=== PATIENT | female | born 1995 | race African-American/Black ===

== ENCOUNTER 2017-11-19 22:02 | Emergency (ER) | payer BC, OTHER ==
[2017-11-19 22:20] VITALS: BP 120/68; PULSE 88; TEMP 98.4; BMI 24.7
--- NOTE | 2017-11-20 00:26 | PDOC ---
History of Present Illness - General History Source: Patient Exam Limitations: No Limitations - General Chief Complaint: Pain Stated Complaint: CHEST PAIN Time Seen by Provider: 11/19/17 23:39 - History of Present Illness Initial Comments: 11/20/17 05:35 Best Contact:[phone] PCP:Dr. Luna Pmhx:Crohn's (dx in 2014) Pshx: Left ovarian cystectomy Allergies:NKDA LMP: presently 22-year-old female presents to the ER with her mother and sister complaining of 2/10 nonradiating intermittent right-sided chest discomfort on exhalation. Patient states she has these similar symptoms approximately 3 times a month but denies fever, chills, nausea/vomiting, facial pains, or throat, neck pains, back pains, shortness of breath, abdominal pains, flank pains, urinary symptoms. Patient states the symptoms last for approximately 20 minutes and subsides without taking anything. Patient denies extremity numbness or tingling sensation. Patient denies using control pills, prolonged sitting or leg pain. (Orin,Jefferson) Past History - Past Medical History COPD: No GI Disorders: Yes (Crohn's) - Suicide/Smoking/Psychosocial Hx Smoking History: Never smoked Have you smoked in the past 12 months: No Information on smoking cessation initiated: No Hx Alcohol Use: No Drug/Substance Use Hx: No Substance Use Type: None - Past Medical History Allergies/Adverse Reactions: Allergies Allergy/AdvReac Type Severity Reaction Status Date / Time No Known Allergies Allergy Verified 11/19/17 22:17 Home Medications: Ambulatory Orders NK [No Known Home Medication] 04/01/14 Review of Systems - Review of Systems Able to Perform ROS?: Yes Is the patient limited Tajik proficient: No - Review of Systems Comments:: 11/20/17 05:41 CONSTITUTIONAL: Absent: fever, chills, diaphoresis, generalized weakness, malaise, loss of appetite HEENT: Absent: rhinorrhea, nasal congestion, throat pain, throat swelling, difficulty swallowing, mouth swelling, ear pain, eye pain, visual Changes CARDIOVASCULAR: +right sided chest pain Absent: loss of consciousness, palpitations, irregular heart rate, peripheral edema RESPIRATORY: Absent: cough, shortness of breath, dyspnea with exertion, orthopnea, wheezing, stridor, hemoptysis GASTROINTESTINAL: Absent: abdominal pain, abdominal distension, nausea, vomiting, diarrhea, constipation, melena, hematochezia GENITOURINARY: Absent: dysuria, frequency, urgency, hesitancy, hematuria, flank pain, genital pain MUSCULOSKELETAL: Absent: myalgia, arthralgia, joint swelling SKIN: Absent: rash, itching, pallor HEMATOLOGIC/IMMUNOLOGIC: Absent: easy bleeding, easy bruising, lymphadenopathy, frequent infections (Jefferson Sr) *Physical Exam - Vital Signs Last Vital Signs Temp Pulse Resp BP Pulse Ox 98.4 F 88 20 120/68 99 11/19/17 22:18 11/19/17 22:18 11/19/17 22:18 11/19/17 22:18 11/19/17 22:18 - Physical Exam Comments: 11/20/17 05:41 GENERAL: Well developed, well nourished. Awake and alert. No acute distress. HEENT: Normocephalic, atraumatic. PERRLA, EOMI. No conjunctival pallor. Sclera are non- icteric. Moist mucous membranes. Oropharynx is clear. NECK: Supple. Full ROM. No JVD. Carotid pulses 2+ and symmetric, without bruits. No thyromegaly. No lymphadenopathy. CARDIOVASCULAR: Regular rate and rhythm. No murmurs, rubs, or gallops. Distal pulses are 2+ and symmetric. PULMONARY: No evidence of respiratory distress. Lungs clear to auscultation bilaterally. No wheezing, rales or rhonchi. ABDOMINAL: Soft. Non-tender. Non-distended. No rebound or guarding. No organomegaly. Normoactive bowel sounds. MUSCULOSKELETAL Normal range of motion at all joints. No bony deformities or tenderness. No CVA tenderness. EXTREMITIES: No cyanosis. No clubbing. No edema. No calf tenderness. SKIN: Warm and dry. Normal capillary refill. No rashes. No jaundice. NEUROLOGICAL: Alert, awake, appropriate. Cranial nerves 2-12 intact. No deficits to light touch and temperature in face, upper extremities and lower extremities. No motor deficits in the in face, upper extremities and lower extremities. Normoreflexic in the upper and lower extremities. Normal speech. Toes are down- going bilaterally. Gait is normal without ataxia. PSYCHIATRIC: Cooperative. Good eye contact. Appropriate mood and affect. (Jefferson Sr) Heart Score/ECG Review - History History: Slightly suspicious - Electrocardiogram EKG: Normal - Age Age: >/= 65 - Risk Factors Based on the list above the patient has:: 1-2 risk factors - Troponin Troponin: </= normal limit - Score Heart Score - Total: 3 *DC/Admit/Observation/Transfer - Discharge Dispostion Admit: No Diagnosis at time of Disposition: Muscular chest pain - Discharge Dispostion Disposition: HOME Condition at time of disposition: Stable - Referrals Referrals: Phil Hollis MD [Staff Physician] - - Patient Instructions Printed Discharge Instructions: DI for Atypical Chest Pain Additional Instructions: Rest Take Tylenol or Motrin as needed for pain Return back to the ER for severe/persistent or worsening symptoms - Attestations Physician Attestion: I reviewed the case with the mid-level practitioner and agree with the mid- level practitioner's assessment, diagnosis and disposition. (Ana Lilia Novoa)
--- NOTE | 2017-11-24 10:37 | EKG ---
Test Reason : Blood Pressure : / mmHG Vent. Rate : 081 BPM Atrial Rate : 081 BPM P-R Int : 140 ms QRS Dur : 084 ms QT Int : 376 ms P-R-T Axes : 059 019 027 degrees QTc Int : 436 ms NORMAL SINUS RHYTHM POSSIBLE LEFT ATRIAL ENLARGEMENT BORDERLINE ECG NO PREVIOUS ECGS AVAILABLE Confirmed by JEANINE ORNELAS, MARYANA ([id number]) on 11/24/2017 10:37:13 AM Referred By: Confirmed By:MARYANA SOLORZANO MD
== END 2017-11-20 01:02 | disposition home or self-care (01) ==
LOC: JER 22:02
DX: R07.89 Other chest pain (principal); Z87.19 Personal history of other diseases of the digestive system
CPT/HCPCS: 93005; 93010; 99282-25